=== PATIENT | male | born 1945 | race Caucasian/White ===

== ENCOUNTER 2021-03-26 09:37 | Outpatient (CLI) | payer MEDICARE ==
[2021-03-26 10:35] LABS: #Eosinphils 0.1 10x3/uL (0.0-0.5); #Monocytes 0.8 10x3/uL (0.0-1.1); #Neutrophils 8.9 10x3/uL (1.5-8.4); %Basophils 0.4 % (0.0-2.0); %Eosinophils 0.6 % (0.0-6.0); %Lymphocytes 8.5 % (18.0-47.0); %Neutrophils 82.9 % (40.0-75.0); Hemoglobin 14.6 g/dL (13.5-17.5); Mean Corpuscular HGB CONC 33.6 g/dL (32.0-36.0); Mean Corpuscular Hemoglobin 28.5 pg (27.0-33.0); Mean Corpuscular Volume 84.8 fl (81.2-95.1); Mean Platelet Volume 11.4 fl (7.4-10.4); Platelet Count 238 10x3/uL (150-450); Red Blood Cell (RBC) Count 5.13 10x6/uL (4.32-5.72); White Blood Cell (WBC) Count 10.8 10x3/uL (3.5-10.5)
[2021-03-26 11:10] LABS: Anion Gap 17 mmol/L (10-20); BUN (Urea Nitrogen) 16 mg/dL (8.4-25.7); Calc. Creatinine Clearance 0 mL/min (70-130); Calcium 9.5 mg/dL (7.8-10.44); Carbon Dioxide 21 mmol/L (23-31); Chloride 102 mmol/L (98-107); Glucose 241 mg/dL (83-110); Potassium 3.2 mmol/L (3.5-5.1); Sodium 137 mmol/L (136-145)
[2021-03-26 15:01] LABS: Hemoglobin A1c 7.3 % (4.0-6.0)
[2021-03-26 21:10] LABS: SARS-CoV-2 PCR by NAA Not Detected (NotDetected)
== END 2021-03-26 09:38 | disposition home or self-care (01) ==
LOC: LABBT 09:37
PROVIDERS: ATTEND Surgery
DX: Z01.812 Encounter for preprocedural laboratory examination (principal); C18.9 Malignant neoplasm of colon, unspecified; Z20.822 Contact with and (suspected) exposure to COVID-19
CPT/HCPCS: 80048; 83036; 85025; U0003; U0005

== ENCOUNTER 2021-03-26 09:45 | Inpatient (IN) | payer MEDICARE ==
[2021-03-31] MEDS ORDERED: cefOXitin Sodium/Dextrose 2 GM/50 ML BAG ONE (11:56)
[2021-03-31] MEDS ORDERED: Lidocaine 1% (PF) 30 ML VIAL ONE (12:48)
[2021-03-31] MEDS ORDERED: Midazolam HCl 2 mg/2 ml Vial ONE (12:48)
[2021-03-31] MEDS ORDERED: Fentanyl 100 MCG/2 ML VIAL ONE ×2 (12:48→13:48)
[2021-03-31] MEDS ORDERED: Phenylephrine 10 MG/ML VIAL ONE (13:48)
[2021-03-31] MEDS ORDERED: HYDROmorphone 0.5 MG/0.5 ML SYRINGE ONE (13:48)
[2021-03-31] MEDS ORDERED: Lidocaine 1% PF 5 ML VIAL ONE (14:02)
[2021-03-31] MEDS ORDERED: Rocuronium Bromide 10 MG/ML (10ML VIAL) ONE (14:02)
[2021-03-31] MEDS ORDERED: Ondansetron PF 4 MG/2 ML Vial ONE (14:02)
[2021-03-31] MEDS ORDERED: Bupivacaine HCl 0.5%/Epinephrine 1:200,000/PF 30 ml Vial ONE (14:02)
[2021-03-31] MEDS ORDERED: Ketorolac Tromethamine 30 MG/ML VIAL ONE (14:02)
[2021-03-31] MEDS ORDERED: PROPOFOL 200 MG/20 ML VIAL ONE (14:02)
[2021-03-31] MEDS ORDERED: Glycopyrrolate 0.2 MG/ML 5 ML SYRINGE ONE (14:02)
[2021-03-31] MEDS ORDERED: ceFOXitin 1 GM VIAL ONE (15:55)
[2021-03-31] MEDS ORDERED: traMADol HCl 50 MG TAB PO PRN (16:50)
[2021-03-31] MEDS ORDERED: Ondansetron PF 4 MG/2 ML Vial IVP PRN (16:50)
[2021-03-31] MEDS ORDERED: ALPRAZolam 0.25 MG TAB PO PRN (16:50)
[2021-03-31] MEDS ORDERED: hydrALAZINE 20 MG/ML VIAL SLOW IVP PRN (16:50)
[2021-03-31] MEDS ORDERED: HumaLOG 300 UNITS/3 ML VIAL SC PRN (16:50)
[2021-03-31] MEDS ORDERED: Zolpidem Tartrate 5 MG TAB PO PRN (16:50)
[2021-03-31] MEDS ORDERED: Promethazine HCl 25 MG/ML VIAL IM PRN (16:50)
[2021-03-31] MEDS: Fentanyl 100 MCG/2 ML VIAL SLOW IVP PRN (18:58)
[2021-03-31 19:39] VITALS: BMI 31.5
[2021-03-31] MEDS: Ketorolac Tromethamine 30 MG/ML VIAL IVP PRN (20:37)
[2021-03-31] MEDS: Famotidine/PF 20 mg/2ml Vial SLOW IVP SCH (20:37)
[2021-03-31] MEDS: Sodium Chloride 0.9% 1,000 ML IV SCH (20:37)
[2021-03-31] MEDS: Famotidine 20 MG TAB PO SCH (20:38)
[2021-03-31] MEDS: cefOXitin Sodium/Dextrose,Iso 2 GM in Premix Bag 1 BAG IVPB SCH (22:30)
[2021-03-31] MEDS: traMADol HCl 50 MG TAB PO PRN (23:11)
[2021-04-01] MEDS: Fentanyl 100 MCG/2 ML VIAL SLOW IVP PRN (01:54)
[2021-04-01] MEDS: Ketorolac Tromethamine 30 MG/ML VIAL IVP PRN ×3 (04:38→17:04)
[2021-04-01 05:43] LABS: #Neutrophils 7.9 thou/uL (1.40-6.50); %Basophils 0.3 % (0.0-1.0); %Eosinophils 0.5 % (0.0-10.0); %Lymphocytes 10.4 % (21.0-51.0); %Monocytes 9.7 % (0.0-10.0); %Neutrophils 79.2 % (42.0-75.0); Hemoglobin 12.9 g/dL (14.0-18.0); Mean Corpuscular HGB CONC 33.6 g/dL (32.0-36.0); Mean Corpuscular Hemoglobin 29.9 pg (27.0-31.0); Mean Platelet Volume 8.8 fL (7.4-10.4); Platelet Count 174 thou/uL (130-400); RBC Distribution Width 12.3 % (11.5-14.5); Red Blood Cell (RBC) Count 4.32 mill/uL (4.70-6.10); White Blood Cell (WBC) Count 9.9 thou/uL (4.8-10.8)
[2021-04-01] MEDS: cefOXitin Sodium/Dextrose,Iso 2 GM in Premix Bag 1 BAG IVPB SCH (05:53)
[2021-04-01 06:05] LABS: Anion Gap 13 mmol/L (10-20); BUN (Urea Nitrogen) 18 mg/dL (8.4-25.7); Calc. Creatinine Clearance 94 mL/min (70-130); Calcium 8.5 mg/dL (7.8-10.44); Carbon Dioxide 24 mmol/L (23-31); Chloride 101 mmol/L (98-107); Glucose 138 mg/dL (83-110); Potassium 3.6 mmol/L (3.5-5.1); Sodium 134 mmol/L (136-145)
[2021-04-01] MEDS: traMADol HCl 50 MG TAB PO PRN ×3 (07:39→21:13)
[2021-04-01] MEDS ORDERED: Losartan/Hydrochlorothiazide 100 mg/25 mg Tablet PO SCH (09:00)
[2021-04-01] MEDS: Sodium Chloride 0.9% 1,000 ML IV SCH ×2 (09:03→13:14)
[2021-04-01] MEDS: Famotidine 20 MG TAB PO SCH ×2 (09:04→20:11)
[2021-04-01] MEDS: Famotidine/PF 20 mg/2ml Vial SLOW IVP SCH ×2 (09:05→20:11)
[2021-04-01] MEDS: Enoxaparin Sodium 40 MG/0.4 ML SYRINGE SC SCH (10:39)
[2021-04-02] MEDS: traMADol HCl 50 MG TAB PO PRN (07:45)
[2021-04-02 08:08] VITALS: BP 150/75; TEMP 97.8
[2021-04-02] MEDS: Famotidine 20 MG TAB PO SCH (08:13)
[2021-04-02] MEDS: Famotidine/PF 20 mg/2ml Vial SLOW IVP SCH (08:16)
[2021-04-02] MEDS: Enoxaparin Sodium 40 MG/0.4 ML SYRINGE SC SCH (09:07)
[2021-04-02] MEDS: Ketorolac Tromethamine 30 MG/ML VIAL IVP PRN (10:04)
== END 2021-04-02 14:06 | disposition home or self-care (01) | DRG 331 ==
LOC: EDSTATUS 03-31 09:45 → SURG A 03-31 10:38 → SURG B 03-31 18:16
PROVIDERS: ADMIT Surgery; ATTEND Surgery
PROC: 0DTF4ZZ Resection of Right Large Intestine, Percutaneous Endoscopic Approach (ICD-10-PCS; principal; 2021-03-31)
PROC: 8E0W4CZ Robotic Assisted Procedure of Trunk Region, Percutaneous Endoscopic Approach (ICD-10-PCS; 2021-03-31)
DX: C18.0 Malignant neoplasm of cecum (principal); Z20.822 Contact with and (suspected) exposure to COVID-19; I10 Essential (primary) hypertension; E11.9 Type 2 diabetes mellitus without complications; E78.5 Hyperlipidemia, unspecified; Z79.82 Long term (current) use of aspirin; K76.9 Liver disease, unspecified
CPT/HCPCS: 36415; 36416; 80048; 85025; 88307; J0694; J1170; J1650; J1885; J2001; J2250; J2370; J2405; J2704; J3010; J7050; S0028

== ENCOUNTER 2021-04-13 05:09 | Observation (INO) | payer MEDICARE ==
[2021-04-13] MEDS ORDERED: Ondansetron PF 4 MG/2 ML Vial ONE (05:30)
[2021-04-13] MEDS ORDERED: Sucralfate 1 GM/10 ML UDCUP ONE (05:30)
[2021-04-13] MEDS ORDERED: Famotidine/PF 20 mg/2ml Vial ONE (05:30)
[2021-04-13 05:37] LABS: #Eosinphils 0.1 thou/uL (0.0-0.7); #Lymphocytes 0.9 thou/uL (1.20-3.40); %Basophils 0.4 % (0.0-1.0); %Eosinophils 0.6 % (0.0-10.0); %Lymphocytes 8.1 % (21.0-51.0); %Monocytes 9.2 % (0.0-10.0); %Neutrophils 81.7 % (42.0-75.0); Hemoglobin 14.7 g/dL (14.0-18.0); Mean Corpuscular HGB CONC 33.7 g/dL (32.0-36.0); Mean Corpuscular Hemoglobin 29.4 pg (27.0-31.0); Mean Corpuscular Volume 87.2 fL (78.0-98.0); Mean Platelet Volume 8.3 fL (7.4-10.4); Platelet Count 339 thou/uL (130-400); RBC Distribution Width 11.9 % (11.5-14.5); White Blood Cell (WBC) Count 11.1 thou/uL (4.8-10.8)
[2021-04-13 05:58] LABS: ALT (SGPT) 54 U/L (8-55); AST (SGOT) 21 U/L (5-34); Albumin 4.1 g/dL (3.4-4.8); Alkaline Phosphatase 58 U/L (40-110); Anion Gap 18 mmol/L (10-20); BUN (Urea Nitrogen) 20 mg/dL (8.4-25.7); Bilirubin, Total 1.3 mg/dL (0.2-1.2); Calc. Creatinine Clearance 0 mL/min (70-130); Calcium 9.8 mg/dL (7.8-10.44); Carbon Dioxide 26 mmol/L (23-31); Chloride 90 mmol/L (98-107); Glucose 178 mg/dL (83-110); Lipase 39 U/L (8-78); Potassium 3.6 mmol/L (3.5-5.1); Protein, Total 7.1 g/dL (5.8-8.1); Sodium 130 mmol/L (136-145)
[2021-04-13 06:42] LABS: Bilirubin Negative (Negative); Blood, Urine Negative (Negative); Clarity Turbid (Clear); Glucose, Urine (Dipstick) Normal (Negative); Ketone, Urine 20 mg/dL (Negative); Leukocyte Negative Leu/uL (Negative); Nitrite Negative (Negative); Protein, Urine (Dipstick) 20 mg/dL (Neg-Trace); Urobilinogen Normal mg/dL (Less than 2); pH, Urine 7.5 (5.0-9.0)
[2021-04-13 06:43] LABS: Specific Gravity, Urine 1.059 (1.002-1.036)
[2021-04-13] MEDS ORDERED: Lorazepam 2 MG/ML VIAL ONE (09:24)
[2021-04-13] MEDS ORDERED: Iopamidol 370 76% 100 ML VIAL ONE (09:58)
[2021-04-13] MEDS ORDERED: HumaLOG 300 UNITS/3 ML VIAL SC PRN (10:43)
[2021-04-13] MEDS ORDERED: Promethazine HCl 25 MG/ML VIAL IM PRN (10:43)
[2021-04-13] MEDS ORDERED: Morphine 2 MG/ML VIAL SLOW IVP PRN (10:43)
[2021-04-13] MEDS ORDERED: Dextrose 5% in Water 1,000 ML IV PRN (10:43)
[2021-04-13] MEDS ORDERED: Morphine 4 MG/ML VIAL SLOW IVP PRN (10:43)
[2021-04-13] MEDS ORDERED: hydrALAZINE 20 MG/ML VIAL SLOW IVP PRN (10:43)
[2021-04-13] MEDS ORDERED: Dextrose 50% Abboject 50 ML SYRINGE SLOW IVP PRN (10:43)
[2021-04-13] MEDS: Sodium Chloride 0.9% 1,000 ML IV SCH ×2 (12:03→17:43)
[2021-04-13 16:11] VITALS: BMI 31.4
[2021-04-14] MEDS: Sodium Chloride 0.9% 1,000 ML IV SCH ×3 (03:35→15:37)
[2021-04-14] MEDS: Losartan/Hydrochlorothiazide 100 mg/25 mg Tablet PO SCH (08:59)
[2021-04-14] MEDS: Pantoprazole 40 MG VIAL IVP SCH (09:45)
[2021-04-15] MEDS: Sodium Chloride 0.9% 1,000 ML IV SCH ×2 (06:14→23:56)
[2021-04-15] MEDS: Ondansetron PF 4 MG/2 ML Vial IVP PRN ×3 (09:10→21:21)
[2021-04-15] MEDS: Pantoprazole 40 MG VIAL IVP SCH (09:11)
[2021-04-15] MEDS: Losartan/Hydrochlorothiazide 100 mg/25 mg Tablet PO SCH (09:11)
[2021-04-15] MEDS: Mag-Al 1200 mg/1200 mg/30 ML UDCUP PO PRN ×3 (12:08→23:54)
[2021-04-16] MEDS: Calcium Carbonate 500 MG ChewTAB PO PRN ×2 (02:35→06:10)
[2021-04-16] MEDS: Ondansetron PF 4 MG/2 ML Vial IVP PRN ×2 (03:09→12:42)
[2021-04-16] MEDS: Mag-Al 1200 mg/1200 mg/30 ML UDCUP PO PRN ×2 (06:10→08:58)
[2021-04-16] MEDS: Losartan/Hydrochlorothiazide 100 mg/25 mg Tablet PO SCH (08:57)
[2021-04-16] MEDS: Pantoprazole 40 MG VIAL IVP SCH (08:57)
[2021-04-16] MEDS ORDERED: ALPRAZolam 0.25 MG TAB PO PRN (10:50)
[2021-04-16] MEDS ORDERED: ALPRAZolam 0.25 MG TAB PO SCH (11:00)
[2021-04-16 12:51] VITALS: BP 153/75; TEMP 97.8
== END 2021-04-16 14:15 | disposition home or self-care (01) ==
LOC: ERS 05:09 → SURG A 10:43
PROVIDERS: ADMIT Surgery; ATTEND Surgery
DX: K56.7 Ileus, unspecified (principal); C18.2 Malignant neoplasm of ascending colon; E11.9 Type 2 diabetes mellitus without complications; E78.5 Hyperlipidemia, unspecified; I10 Essential (primary) hypertension; Z98.890 Other specified postprocedural states; Z79.82 Long term (current) use of aspirin; Z79.899 Other long term (current) drug therapy
CPT/HCPCS: 36415; 36416; 71045; 74177; 80053; 81003; 83690; 84484; 85025; 93005; 96372; 96374; 96375; 96376; C9113; G0378; J2060; J2405; J2550; J7050; Q9967; S0028

== ENCOUNTER 2024-02-23 08:55 | Outpatient (CLI) | payer MEDICARE | END 2024-02-23 08:56 | disposition home or self-care (01) | LOC: LABBT 08:55 | PROVIDERS: ATTEND Thoracic Surgery (Cardiothoracic Vascular Surgery) | DX: Z01.818 Encounter for other preprocedural examination (principal); I25.10 Atherosclerotic heart disease of native coronary artery without angina pectoris; I48.91 Unspecified atrial fibrillation | CPT/HCPCS: 71046; 93005; 93010 ==

== ENCOUNTER 2024-02-23 09:00 | Inpatient (IN) | payer MEDICARE ==
[2024-02-23 10:38] LABS: #Basophils 0.04 10x3/uL (0.0-0.2); %Basophils 0.4 % (0.0-1.0); %Eosinophils 0.9 % (0.0-10.0); %Lymphocytes 11.6 % (21.0-51.0); %Monocytes 7.3 % (0.0-10.0); %Neutrophils 79.5 % (42.0-75.0); Hematocrit 44.4 % (42.0-52.0); Hemoglobin 14.8 g/dL (14.0-18.0); Mean Corpuscular HGB CONC 33.3 g/dL (32.0-36.0); Mean Corpuscular Hemoglobin 28.8 pg (27.0-31.0); Mean Corpuscular Volume 86.5 fL (78.0-98.0); Mean Platelet Volume 11.3 fL (7.4-10.4); Platelet Count 229 10x3/uL (130-400); RBC Distribution Width 13.1 % (11.5-14.5); Red Blood Cell (RBC) Count 5.13 mill/uL (4.70-6.10)
[2024-02-23 10:53] LABS: Anion Gap 13 mmol/L (10-20); BUN (Urea Nitrogen) 19 mg/dL (8.4-25.7); Calc. Creatinine Clearance 83 mL/min (70-130); Calcium 9.5 mg/dL (7.8-10.44); Carbon Dioxide 23 mmol/L (23-31); Chloride 105 mmol/L (98-107); Estimated GFR 79; Glucose 222 mg/dL (83-110); Potassium 3.9 mmol/L (3.5-5.1); Sodium 137 mmol/L (136-145)
[2024-02-26] MEDS ORDERED: EPINEPHrine 1 MG/ML VIAL ONE (06:36)
[2024-02-26] MEDS ORDERED: PHENYLEPHRINE-NS 100 MCG/ML 10 ML SYRINGE ONE ×2 (06:36→07:25)
[2024-02-26] MEDS ORDERED: Dexamethasone 4 mg/ml Vial ONE (06:36)
[2024-02-26] MEDS ORDERED: Lidocaine 1% MPF 2 ML VIAL ONE (06:36)
[2024-02-26] MEDS ORDERED: Albumin 5% 0 ML ONE (06:37)
[2024-02-26] MEDS ORDERED: Bupivacaine PF 0.5% 30 ML VIAL ONE (06:37)
[2024-02-26] MEDS ORDERED: Heparin 10,000 UNITS/1 ML VIAL 30,000 UNITS in Sodium Chloride 0.9% 1,000 ML FS SCH (07:00)
[2024-02-26] MEDS ORDERED: Midazolam HCl 2 mg/2 ml Vial ONE ×2 (07:06→08:25)
[2024-02-26] MEDS ORDERED: Fentanyl 250 MCG/5 ML VIAL ONE (07:06)
[2024-02-26] MEDS ORDERED: Sodium Chloride 0.9% 100 ML ONE (07:19)
[2024-02-26] MEDS ORDERED: PROPOFOL 20 ML ONE (07:19)
[2024-02-26] MEDS ORDERED: CEFAZOLIN 2 GM VIAL ONE (07:19)
[2024-02-26] MEDS ORDERED: Rocuronium Bromide 10 MG/ML (10ML VIAL) ONE (07:22)
[2024-02-26] MEDS ORDERED: Esmolol 100 MG/10 ML VIAL ONE (07:59)
[2024-02-26] MEDS ORDERED: Mannitol 12.5 GM/50 ML ONE (08:15)
[2024-02-26] MEDS ORDERED: Cardioplegic Soln 1,000 ML BAG ONE (08:15)
[2024-02-26] MEDS ORDERED: Glycopyrrolate 0.2 MG/ML 5 ML SYRINGE ONE (08:15)
[2024-02-26] MEDS ORDERED: Thrombin 5000 UNITS/5 ML VIAL ONE (08:15)
[2024-02-26] MEDS ORDERED: Aminocaproic Acid 5 GM/20 ML VIAL ONE (08:15)
[2024-02-26] MEDS ORDERED: Lidocaine 2% PF 100 mg/5 ml Syringe ONE (08:15)
[2024-02-26] MEDS ORDERED: Papaverine 60 MG/2 ML VIAL ONE (08:15)
[2024-02-26] MEDS ORDERED: Sodium Bicarb 50 mEq/50 ML VIAL ONE (08:15)
[2024-02-26] MEDS ORDERED: Heparin 30,000 units/30 ml VIAL ONE (08:15)
[2024-02-26] MEDS ORDERED: Heparin 5,000 UNITS/ML VIAL ONE (08:15)
[2024-02-26] MEDS ORDERED: Magnesium 5 GM/10 ML VIAL ONE (08:15)
[2024-02-26] MEDS ORDERED: Protamine Sulfate 250 MG/25 ML VIAL ONE (08:15)
[2024-02-26] MEDS ORDERED: Calcium Chloride 1 GM/10 ML Abboject SYRINGE ONE (08:15)
[2024-02-26] MEDS ORDERED: Potassium Chloride 60 mEq (30 mL) VIAL ONE (08:15)
[2024-02-26] MEDS ORDERED: Vancomycin 1 GM VIAL ONE (08:15)
[2024-02-26] MEDS ORDERED: NOREPINEPHRINE 8 MG/250 ML-D5W 250 ML ONE (08:26)
[2024-02-26] MEDS ORDERED: Bisacodyl 10 MG SUPP PR PRN (11:13)
[2024-02-26] MEDS ORDERED: Mag-Al 1200 mg/1200 mg/30 ML UDCUP PO PRN (11:13)
[2024-02-26] MEDS ORDERED: Promethazine HCl 25 MG/ML VIAL IM PRN (11:13)
[2024-02-26] MEDS ORDERED: Ipratropium/Albuterol 3 ML NEB NEB PRN (11:13)
[2024-02-26] MEDS ORDERED: NOREPINEPHRINE 8 MG/250 ML-D5W 250 ML IVPB PRN (11:13)
[2024-02-26] MEDS ORDERED: hydrALAZINE 20 MG/ML VIAL SLOW IVP PRN (11:13)
[2024-02-26] MEDS ORDERED: fentaNYL 50 mcg/mL 1 mL Vial SLOW IVP PRN ×2 (11:13)
[2024-02-26] MEDS ORDERED: Ondansetron PF 4 MG/2 ML Vial IVP PRN (11:13)
[2024-02-26] MEDS ORDERED: Albumin 5% 12.5 GM (250 mL) BOT IVPB PRN (11:13)
[2024-02-26] MEDS ORDERED: Guaifenesin DM 100-10/5 ML UDCUP PO PRN (11:13)
[2024-02-26] MEDS ORDERED: Nitroglycerin 50 MG/250 ML BOT 250 ML IVPB PRN (11:13)
[2024-02-26] MEDS ORDERED: Dextrose 5% in Water 1,000 ML IV PRN (11:30)
[2024-02-26] MEDS ORDERED: INSULIN REGULAR IN 0.9 % NACL 100 UNITS in Premix 1 BAG IVPB SCH (11:30)
[2024-02-26] MEDS ORDERED: Dextrose 50% Abboject 50 ML SYRINGE SLOW IVP PRN (11:30)
[2024-02-26] MEDS ORDERED: Glucagon 1 MG/ML KIT SC PRN (11:30)
[2024-02-26 11:33] LABS: Actual Bicarbonate (HCO3a) 20.3 mEq/L (22-28); Base Excess (BEa) -4.7 mEq/L (-2.0 to +3.0); CO2 Tension 37.7 mmHg (35.0-45.0); Calcium, Ionized (arterial) 1.13 mmol/L (1.12-1.30); Carboxyhemoglobin (COHb) 0.3 gm% (0.0-3.0); Hematocrit-ABG 38 % (42.0-52.0); Hemoglobin (Hb) 12.9 g/dL (14.0-18.0); O2 Tension (PaO2), arterial 86.6 mmHg (> 70.0); Potassium - ABG Lab 4.36 mmol/L (3.70-5.30)
[2024-02-26 11:35] LABS: ALV-art Gradient 294.075 mmHg (0-20); Puncture Site Arterial Line
[2024-02-26] MEDS: Magnesium 2 GM/50 ML(in water) 2 GM in Premix 1 BAG IVPB SCH (11:44)
[2024-02-26] MEDS: Morphine 2 MG/ML VIAL SLOW IVP PRN (11:44)
[2024-02-26] MEDS: Ketorolac Tromethamine 30 MG (1 mL) VIAL IVP SCH (11:44)
[2024-02-26] MEDS: Insulin Regular, Human 100 UNIT/ML 10 ML VIAL SC PRN (11:45)
[2024-02-26] MEDS: D5 1/2 NS w/20 mEq KCL 1,000 ML IV SCH (11:45)
[2024-02-26] MEDS: CEFAZOLIN 2 GM in Sodium Chloride 0.9% 100 ML IVPB SCH ×2 (11:48→14:49)
[2024-02-26 12:10] LABS: Hematocrit 37.9 % (42.0-52.0); Hemoglobin 12.5 g/dL (14.0-18.0); Mean Corpuscular Hemoglobin 28.9 pg (27.0-31.0); Mean Corpuscular Volume 87.7 fL (78.0-98.0); Mean Platelet Volume 10.9 fL (7.4-10.4); Platelet Count 196 10x3/uL (130-400); RBC Distribution Width 13.2 % (11.5-14.5); Red Blood Cell (RBC) Count 4.32 mill/uL (4.70-6.10)
[2024-02-26] MEDS: Albumin 5% 12.5 GM (250 mL) BOT IVPB PRN (12:17)
[2024-02-26 12:22] LABS: INR-International Normal Ratio 1.2; Prothrombin Time 15.5 sec (12.0-14.7)
[2024-02-26 12:23] LABS: Anion Gap 14 mmol/L (10-20); BUN (Urea Nitrogen) 15 mg/dL (8.4-25.7); Calc. Creatinine Clearance 99 mL/min (70-130); Carbon Dioxide 20 mmol/L (23-31); Chloride 110 mmol/L (98-107); Estimated GFR 91; Glucose 208 mg/dL (83-110); PTT 26.4 sec (22.9-36.1); Potassium 4.5 mmol/L (3.5-5.1); Sodium 139 mmol/L (136-145)
[2024-02-26] MEDS: Potassium Chloride 20 MEQ (100 mL) BAG IVPB PRN (12:32)
[2024-02-26 12:44] LABS: Band 14 % (5-11); Burr Cells SLIGHT = 2-5 cells HPF (0-1); Lymphocytes 4 % (21-51); Monocytes 6 % (0-10); Neutrophil 76 % (42-75); Platelet Adequacy Comment Platelets Normal
[2024-02-26 14:01] LABS: Base Excess (BEa) -4.7 mEq/L (-2.0 to +3.0); Calcium, Ionized (arterial) 1.08 mmol/L (1.12-1.30); Carboxyhemoglobin (COHb) 0.2 gm% (0.0-3.0); Hematocrit-ABG 37 % (42.0-52.0); Hemoglobin (Hb) 12.5 g/dL (14.0-18.0); O2 Tension (PaO2), arterial 280.8 mmHg (> 70.0); Potassium - ABG Lab 5.17 mmol/L (3.70-5.30); pH, Arterial 7.562 (7.35-7.45)
[2024-02-26 14:10] LABS: Actual Bicarbonate (HCO3a) 14.9 mEq/L (22-28); Puncture Site Arterial Line
[2024-02-26] MEDS: traMADol HCl 50 MG TAB PO PRN ×2 (15:22→21:40)
[2024-02-26 17:38] LABS: Hematocrit 36.3 % (42.0-52.0)
[2024-02-26 17:50] LABS: Potassium 4.9 mmol/L (3.5-5.1)
[2024-02-26] MEDS: Famotidine/PF 20 mg/2ml Vial SLOW IVP SCH (21:40)
[2024-02-26] MEDS: Flecainide 50 MG TAB PO SCH (21:42)
[2024-02-26] MEDS: Atorvastatin Calcium 20 MG TAB PO SCH (21:42)
[2024-02-27 04:32] LABS: #Basophils Less than 0.03 10x3/uL (0.0-0.2); #Eosinphils Less than 0.03 10x3/uL (0.0-0.7); %Basophils 0.1 % (0.0-1.0); %Lymphocytes 3.2 % (21.0-51.0); %Monocytes 8.3 % (0.0-10.0); Hemoglobin 11.5 g/dL (14.0-18.0); Mean Corpuscular HGB CONC 32.9 g/dL (32.0-36.0); Mean Corpuscular Hemoglobin 29.3 pg (27.0-31.0); Mean Corpuscular Volume 89.1 fL (78.0-98.0); Platelet Count 187 10x3/uL (130-400); RBC Distribution Width 13.3 % (11.5-14.5); Red Blood Cell (RBC) Count 3.93 mill/uL (4.70-6.10)
[2024-02-27 04:45] LABS: Anion Gap 10 mmol/L (10-20); BUN (Urea Nitrogen) 16 mg/dL (8.4-25.7); Calc. Creatinine Clearance 88 mL/min (70-130); Calcium 8.1 mg/dL (7.8-10.44); Carbon Dioxide 23 mmol/L (23-31); Chloride 107 mmol/L (98-107); Estimated GFR 88; Glucose 154 mg/dL (83-110); Potassium 4.6 mmol/L (3.5-5.1); Sodium 135 mmol/L (136-145)
[2024-02-27] MEDS ORDERED: Mag-Al 1200 mg/1200 mg/30 ML UDCUP PO PRN (06:46)
[2024-02-27] MEDS ORDERED: Artificial Tear Ophth Sol 15 ML BOT EA EYE PRN (06:46)
[2024-02-27] MEDS ORDERED: Bisacodyl 10 MG SUPP PR PRN (06:46)
[2024-02-27] MEDS ORDERED: Bisacodyl 5 MG TAB PO PRN (06:46)
[2024-02-27] MEDS ORDERED: diphenhydrAMINE 25 MG CAP PO PRN (06:46)
[2024-02-27] MEDS ORDERED: Nitroglycerin 0.4 MG TAB (25 Tab Bottle) SL PRN (06:46)
[2024-02-27] MEDS ORDERED: Guaifenesin DM 100-10/5 ML UDCUP PO PRN (06:46)
[2024-02-27] MEDS ORDERED: Milk Of Magnesia 30 ML UDCUP PO PRN (06:46)
[2024-02-27] MEDS ORDERED: Mineral Oil ENEMA PR PRN (06:46)
[2024-02-27] MEDS: Metoprolol Tartrate 25 MG TAB PO SCH (07:59)
[2024-02-27] MEDS: Aspirin 325 MG TAB PO SCH (07:59)
[2024-02-27] MEDS: Magnesium 2 GM/50 ML(in water) 2 GM in Premix 1 BAG IVPB SCH (07:59)
[2024-02-27] MEDS: Furosemide 40 MG TAB PO SCH (07:59)
[2024-02-27] MEDS: Potassium Chloride 10 MEQ TAB PO SCH (07:59)
[2024-02-27] MEDS: Pantoprazole DR 40 MG TAB PO SCH (07:59)
[2024-02-27] MEDS ORDERED: Insulin Glargine 30 UNITS/0.3 ML VIAL SC PRN (11:21)
[2024-02-27] MEDS: Bisacodyl 5 MG TAB PO PRN (20:17)
[2024-02-29 06:07] VITALS: BMI 26.3
[2024-02-29] MEDS: Amiodarone 150 MG, Admixture Fee 1 EACH in Dextrose 5% in Water 100 ML IVPB SCH (09:44)
[2024-02-29] MEDS: Amiodarone 450 MG in Dextrose 5% in Water 250 ML IVPB SCH (09:54)
[2024-02-29] MEDS: Diltiazem HCl/D5W 125 MG in Premix 1 BAG IVPB SCH (10:14)
[2024-02-29] MEDS: Acetaminophen 325 MG TAB PO PRN (12:45)
[2024-02-29 13:30] LABS: Actual Bicarbonate (HCO3a) 20.9 mEq/L (22-28); Analyzer IN Cardio OR; Base Excess (BEa) -4.4 mEq/L (-2.0 to +3.0); CO2 Tension 39.1 mmHg (35.0-45.0); Calcium, Ionized (arterial) 1.14 mmol/L (1.12-1.30); Carboxyhemoglobin (COHb) 0.4 gm% (0.0-3.0); Hematocrit-ABG 41 % (42.0-52.0); Hemoglobin (Hb) 13.9 g/dL (14.0-18.0); O2 Tension (PaO2), arterial 235.8 mmHg (> 70.0); Potassium - ABG Lab 3.65 mmol/L (3.70-5.30); pH, Arterial 7.345 (7.35-7.45)
[2024-02-29 13:31] LABS: Actual Bicarbonate (HCO3a) 23.5 mEq/L (22-28); Analyzer IN Cardio OR; Base Excess (BEa) -2.4 mEq/L (-2.0 to +3.0); Calcium, Ionized (arterial) 1.02 mmol/L (1.12-1.30); Carboxyhemoglobin (COHb) 0.3 gm% (0.0-3.0); Hematocrit-ABG 30 % (42.0-52.0); Hemoglobin (Hb) 10.3 g/dL (14.0-18.0); O2 Tension (PaO2), arterial 401.7 mmHg (> 70.0); pH, Arterial 7.335 (7.35-7.45)
[2024-02-29 13:31] LABS: Actual Bicarbonate (HCO3a) 25.7 mEq/L (22-28); Analyzer IN Cardio OR; Base Excess (BEa) -1.6 mEq/L (-2.0 to +3.0); CO2 Tension 55.1 mmHg (35.0-45.0); Carboxyhemoglobin (COHb) 0.3 gm% (0.0-3.0); Hematocrit-ABG 33 % (42.0-52.0); Hemoglobin (Hb) 11.3 g/dL (14.0-18.0); O2 Tension (PaO2), arterial 344.1 mmHg (> 70.0); pH, Arterial 7.286 (7.35-7.45)
[2024-02-29 13:31] LABS: Actual Bicarbonate (HCO3a) 20.2 mEq/L (22-28); Analyzer IN Cardio OR; Base Excess (BEa) -4.1 mEq/L (-2.0 to +3.0); CO2 Tension 34.3 mmHg (35.0-45.0); Calcium, Ionized (arterial) 1.13 mmol/L (1.12-1.30); Carboxyhemoglobin (COHb) 0.3 gm% (0.0-3.0); Hematocrit-ABG 33 % (42.0-52.0); Hemoglobin (Hb) 11.3 g/dL (14.0-18.0); O2 Tension (PaO2), arterial 277.3 mmHg (> 70.0); Potassium - ABG Lab 4.58 mmol/L (3.70-5.30); pH, Arterial 7.388 (7.35-7.45)
[2024-02-29 13:31] LABS: Actual Bicarbonate (HCO3a) 22.4 mEq/L (22-28); Analyzer IN Cardio OR; Base Excess (BEa) -3.2 mEq/L (-2.0 to +3.0); Calcium, Ionized (arterial) 1.14 mmol/L (1.12-1.30); Carboxyhemoglobin (COHb) 0.5 gm% (0.0-3.0); Hematocrit-ABG 39 % (42.0-52.0); Hemoglobin (Hb) 13.1 g/dL (14.0-18.0); O2 Tension (PaO2), arterial 346.8 mmHg (> 70.0); Potassium - ABG Lab 4.51 mmol/L (3.70-5.30); pH, Arterial 7.344 (7.35-7.45)
[2024-02-29 13:32] LABS: Puncture Site Arterial Line
[2024-02-29 13:32] LABS: Puncture Site Arterial Line
[2024-02-29 13:33] LABS: Puncture Site Arterial Line
[2024-02-29 13:33] LABS: Puncture Site Arterial Line
[2024-02-29 13:33] LABS: Puncture Site Arterial Line
[2024-03-01] MEDS: Digoxin 0.5 MG/2 ML AMP SLOW IVP SCH (05:48)
[2024-03-01] MEDS: Metoprolol Tartrate 25 MG TAB PO SCH (08:33)
[2024-03-02 04:57] LABS: #Basophils 0.04 10x3/uL (0.0-0.2); %Basophils 0.3 % (0.0-1.0); %Eosinophils 2.3 % (0.0-10.0); %Lymphocytes 8.5 % (21.0-51.0); %Monocytes 9.6 % (0.0-10.0); %Neutrophils 78.5 % (42.0-75.0); Hemoglobin 12.4 g/dL (14.0-18.0); Mean Corpuscular HGB CONC 32.6 g/dL (32.0-36.0); Mean Corpuscular Hemoglobin 29.1 pg (27.0-31.0); Mean Corpuscular Volume 89.2 fL (78.0-98.0); Platelet Count 239 10x3/uL (130-400); RBC Distribution Width 13.2 % (11.5-14.5); Red Blood Cell (RBC) Count 4.26 mill/uL (4.70-6.10)
[2024-03-02 05:13] LABS: ALT (SGPT) 26 U/L (8-55); AST (SGOT) 22 U/L (5-34); Albumin 2.9 g/dL (3.4-4.8); Alkaline Phosphatase 57 U/L (40-110); Anion Gap 11 mmol/L (10-20); BUN (Urea Nitrogen) 24 mg/dL (8.4-25.7); Bilirubin, Total 1.2 mg/dL (0.2-1.2); Calc. Creatinine Clearance 94 mL/min (70-130); Calcium 9.1 mg/dL (7.8-10.44); Carbon Dioxide 26 mmol/L (23-31); Chloride 104 mmol/L (98-107); Estimated GFR 89; Globulin 2.8 g/dL (2.4-3.5); Glucose 153 mg/dL (83-110); Magnesium 1.9 mg/dL (1.6-2.6); Phosphorus 3.7 mg/dL (2.3-4.7); Protein, Total 5.7 g/dL (5.8-8.1); Sodium 137 mmol/L (136-145)
[2024-03-02] MEDS: Magnesium 2 GM/50 ML(in water) 2 GM in Premix 1 BAG IVPB SCH (11:31)
[2024-03-02 22:28] LABS: Bacteria/HPF None Seen HPF (None Seen); Bilirubin Negative (Negative); Blood, Urine Trace (Negative); Clarity Clear (Clear); Glucose, Urine (Dipstick) Normal (Negative); Ketone, Urine Negative (Negative); Leukocyte Negative Leu/uL (Negative); Nitrite Negative (Negative); Protein, Urine (Dipstick) Negative (Neg-Trace); Specific Gravity, Urine 1.012 (1.002-1.036); Squamous Epithelial None Seen HPF (0-3); Urobilinogen Normal mg/dL (Less than 2); WBC/HPF 0-3 HPF (0-3); pH, Urine 5.5 (5.0-9.0)
[2024-03-03 05:22] LABS: #Basophils 0.04 10x3/uL (0.0-0.2); %Basophils 0.3 % (0.0-1.0); %Eosinophils 2.3 % (0.0-10.0); %Lymphocytes 8.6 % (21.0-51.0); %Monocytes 11.6 % (0.0-10.0); %Neutrophils 76.6 % (42.0-75.0); Hematocrit 36.6 % (42.0-52.0); Hemoglobin 11.9 g/dL (14.0-18.0); Mean Corpuscular HGB CONC 32.5 g/dL (32.0-36.0); Mean Corpuscular Hemoglobin 29.2 pg (27.0-31.0); Mean Corpuscular Volume 89.9 fL (78.0-98.0); Mean Platelet Volume 11.3 fL (7.4-10.4); Platelet Count 260 10x3/uL (130-400); RBC Distribution Width 13.2 % (11.5-14.5); Red Blood Cell (RBC) Count 4.07 mill/uL (4.70-6.10)
[2024-03-03 05:41] LABS: ALT (SGPT) 31 U/L (8-55); AST (SGOT) 23 U/L (5-34); Albumin 2.8 g/dL (3.4-4.8); Alkaline Phosphatase 53 U/L (40-110); Anion Gap 12 mmol/L (10-20); BUN (Urea Nitrogen) 19 mg/dL (8.4-25.7); Bilirubin, Total 1.3 mg/dL (0.2-1.2); Calc. Creatinine Clearance 85 mL/min (70-130); Carbon Dioxide 28 mmol/L (23-31); Chloride 104 mmol/L (98-107); Estimated GFR 81; Glucose 159 mg/dL (83-110); Magnesium 2.2 mg/dL (1.6-2.6); Phosphorus 3.4 mg/dL (2.3-4.7); Potassium 4.8 mmol/L (3.5-5.1); Protein, Total 5.8 g/dL (5.8-8.1); Sodium 139 mmol/L (136-145)
[2024-03-03] MEDS: Tamsulosin HCl 0.4 MG CAP PO SCH (14:34)
[2024-03-04 05:45] LABS: #Basophils 0.04 10x3/uL (0.0-0.2); %Basophils 0.3 % (0.0-1.0); %Eosinophils 1.9 % (0.0-10.0); %Lymphocytes 7.4 % (21.0-51.0); %Monocytes 9.5 % (0.0-10.0); Hematocrit 35.5 % (42.0-52.0); Hemoglobin 11.7 g/dL (14.0-18.0); Mean Corpuscular Hemoglobin 29.3 pg (27.0-31.0); Mean Corpuscular Volume 88.8 fL (78.0-98.0); Mean Platelet Volume 11.5 fL (7.4-10.4); Platelet Count 236 10x3/uL (130-400); RBC Distribution Width 13.2 % (11.5-14.5)
[2024-03-04 05:57] LABS: ALT (SGPT) 32 U/L (8-55); AST (SGOT) 20 U/L (5-34); Albumin 2.8 g/dL (3.4-4.8); Alkaline Phosphatase 53 U/L (40-110); Anion Gap 15 mmol/L (10-20); BUN (Urea Nitrogen) 19 mg/dL (8.4-25.7); Bilirubin, Total 1.3 mg/dL (0.2-1.2); Calc. Creatinine Clearance 93 mL/min (70-130); Calcium 8.8 mg/dL (7.8-10.44); Carbon Dioxide 23 mmol/L (23-31); Chloride 102 mmol/L (98-107); Estimated GFR 88; Globulin 3.1 g/dL (2.4-3.5); Glucose 178 mg/dL (83-110); Phosphorus 3.2 mg/dL (2.3-4.7); Potassium 3.9 mmol/L (3.5-5.1); Protein, Total 5.9 g/dL (5.8-8.1); Sodium 136 mmol/L (136-145)
[2024-03-04] MEDS: Tamsulosin HCl 0.4 MG CAP PO SCH (09:12)
[2024-03-04] MEDS: Amiodarone 200 MG TAB PO SCH ×2 (09:12→20:29)
[2024-03-04] MEDS ORDERED: ePHEDrine Sulfate 50 MG/10 ML VIAL ONE (09:46)
[2024-03-04] MEDS ORDERED: Propofol 500 MG/50 ML VIAL ONE (09:46)
[2024-03-04] MEDS ORDERED: Lidocaine 2% PF 5 ML VIAL ONE (09:47)
[2024-03-04] MEDS ORDERED: PHENYLEPHRINE-NS 100 MCG/ML 10 ML SYRINGE ONE (09:47)
[2024-03-04 15:17] VITALS: BMI 28.3
[2024-03-04] MEDS: Furosemide 40 MG (4 mL) VIAL SLOW IVP SCH (16:13)
[2024-03-04] MEDS: Metoprolol Tartrate 50 MG TAB PO SCH (20:29)
[2024-03-05 06:03] LABS: #Basophils 0.04 10x3/uL (0.0-0.2); %Basophils 0.3 % (0.0-1.0); %Eosinophils 1.9 % (0.0-10.0); %Lymphocytes 7.1 % (21.0-51.0); %Neutrophils 80.2 % (42.0-75.0); Hematocrit 34.8 % (42.0-52.0); Hemoglobin 11.4 g/dL (14.0-18.0); Mean Corpuscular HGB CONC 32.8 g/dL (32.0-36.0); Mean Corpuscular Hemoglobin 28.9 pg (27.0-31.0); Mean Corpuscular Volume 88.1 fL (78.0-98.0); Mean Platelet Volume 11.3 fL (7.4-10.4); Platelet Count 257 10x3/uL (130-400); RBC Distribution Width 13.2 % (11.5-14.5); Red Blood Cell (RBC) Count 3.95 mill/uL (4.70-6.10)
[2024-03-05 06:16] LABS: ALT (SGPT) 39 U/L (8-55); AST (SGOT) 28 U/L (5-34); Albumin 2.6 g/dL (3.4-4.8); Alkaline Phosphatase 55 U/L (40-110); Anion Gap 16 mmol/L (10-20); BUN (Urea Nitrogen) 17 mg/dL (8.4-25.7); Bilirubin, Total 1.2 mg/dL (0.2-1.2); Calc. Creatinine Clearance 89 mL/min (70-130); Calcium 8.8 mg/dL (7.8-10.44); Carbon Dioxide 26 mmol/L (23-31); Chloride 101 mmol/L (98-107); Estimated GFR 87; Globulin 3.1 g/dL (2.4-3.5); Glucose 152 mg/dL (83-110); Magnesium 2.1 mg/dL (1.6-2.6); Phosphorus 3.6 mg/dL (2.3-4.7); Potassium 3.8 mmol/L (3.5-5.1); Protein, Total 5.7 g/dL (5.8-8.1); Sodium 139 mmol/L (136-145)
[2024-03-05] MEDS: dilTIAZem 30 MG TAB PO SCH ×2 (11:00→14:30)
[2024-03-05] MEDS: ALPRAZolam 0.25 MG TAB PO PRN (20:45)
[2024-03-06] MEDS: Amiodarone 200 MG TAB PO SCH (15:09)
[2024-03-08 09:26] VITALS: TEMP 98.1
[2024-03-08 14:25] VITALS: BP 131/81
== END 2024-03-08 16:47 | disposition home or self-care (01) | DRG 236 ==
LOC: SURG A 02-26 06:15 → CCU 02-26 11:30 → 2NO 03-01 05:10
PROVIDERS: ADMIT Thoracic Surgery (Cardiothoracic Vascular Surgery); ATTEND Thoracic Surgery (Cardiothoracic Vascular Surgery)
PROC: 02100Z9 Bypass Coronary Artery, One Artery from Left Internal Mammary, Open Approach (ICD-10-PCS; 2024-02-26)
PROC: 021109W Bypass Coronary Artery, Two Arteries from Aorta with Autologous Venous Tissue, Open Approach (ICD-10-PCS; 2024-02-26)
PROC: 06BQ0ZZ Excision of Left Saphenous Vein, Open Approach (ICD-10-PCS; 2024-02-26)
PROC: 30233J1 Transfusion of Nonautologous Serum Albumin into Peripheral Vein, Percutaneous Approach (ICD-10-PCS; 2024-02-26)
PROC: 3E033XZ Introduction of Vasopressor into Peripheral Vein, Percutaneous Approach (ICD-10-PCS; 2024-02-26)
PROC: 5A1221Z Performance of Cardiac Output, Continuous (ICD-10-PCS; 2024-02-26)
PROC: 02L70CK Occlusion of Left Atrial Appendage with Extraluminal Device, Open Approach (ICD-10-PCS; 2024-02-26)
PROC: 5A2204Z Restoration of Cardiac Rhythm, Single (ICD-10-PCS; principal; 2024-03-04)
PROC: B24BZZ4 Ultrasonography of Heart with Aorta, Transesophageal (ICD-10-PCS; 2024-03-04)
DX: I25.10 Atherosclerotic heart disease of native coronary artery without angina pectoris (principal); I48.19 Other persistent atrial fibrillation; E11.9 Type 2 diabetes mellitus without complications; I10 Essential (primary) hypertension; E78.5 Hyperlipidemia, unspecified; N40.1 Benign prostatic hyperplasia with lower urinary tract symptoms; R33.8 Other retention of urine; Z79.899 Other long term (current) drug therapy; Z79.84 Long term (current) use of oral hypoglycemic drugs; Z98.890 Other specified postprocedural states
CPT/HCPCS: 36415; 36416; 71045; 80048; 80053; 81001; 82805; 83735; 84100; 85025; 85610; 85730; 86850; 86900; 86901; 92960; 93005; 93010; 93312; 93798; 94002; A4311; A4648; C1751; J0171; J0282; J0665; J1100; J1160; J1642; J1644; J1815; J1885; J1940; J2001; J2150; J2250; J2272; J2440; J2704; J2720; J3010; J3370; J3475; J3480; J3490; J7070; P9045; S0017